=== PATIENT | male | born 1985 | race Hispanic/Latino ===

== ENCOUNTER 2021-07-28 05:20 | Emergency (ER) | payer BC, OTHER, SELFPAY ==
[2021-07-28] MEDS ORDERED: Pantoprazole 40 MG VIAL ONE (05:44)
[2021-07-28] MEDS ORDERED: Lidocaine Viscous Sol 2% 15 ml UD Cup ONE (05:44)
[2021-07-28] MEDS ORDERED: Mag-Al Plus 1200 MG/1200 MG/120 MG/30 ML UDCUP ONE (05:44)
[2021-07-28 06:00] LABS: #Basophils 0.1 thou/uL (0.0-0.2); #Lymphocytes 1.4 thou/uL (1.20-3.40); #Monocytes 0.8 thou/uL (0.11-0.59); #Neutrophils 5.2 thou/uL (1.40-6.50); %Basophils 0.8 % (0.0-1.0); %Eosinophils 0.6 % (0.0-10.0); %Monocytes 10.5 % (0.0-10.0); %Neutrophils 69.1 % (42.0-75.0); Hemoglobin 13.8 g/dL (14.0-18.0); Mean Corpuscular HGB CONC 31.5 g/dL (32.0-36.0); Mean Corpuscular Hemoglobin 27.1 pg (27.0-31.0); Mean Corpuscular Volume 85.9 fL (78.0-98.0); Mean Platelet Volume 7.2 fL (7.4-10.4); Platelet Count 196 thou/uL (130-400); RBC Distribution Width 13.3 % (11.5-14.5); Red Blood Cell (RBC) Count 5.09 mill/uL (4.70-6.10); White Blood Cell (WBC) Count 7.6 thou/uL (4.8-10.8)
[2021-07-28] MEDS ORDERED: Ondansetron PF 4 MG/2 ML Vial ONE (06:23)
[2021-07-28] MEDS ORDERED: Morphine 4 MG/ML VIAL ONE (06:23)
[2021-07-28 06:26] LABS: ALT (SGPT) 33 U/L (8-55); AST (SGOT) 22 U/L (5-34); Albumin 4.1 g/dL (3.5-5.0); Alkaline Phosphatase 42 U/L (40-110); Anion Gap 12 mmol/L (10-20); BUN (Urea Nitrogen) 14 mg/dL (8.9-20.6); Bilirubin, Total 0.3 mg/dL (0.2-1.2); Calc. Creatinine Clearance 0 mL/min (70-130); Calcium 8.7 mg/dL (7.8-10.44); Carbon Dioxide 24 mmol/L (22-29); Chloride 104 mmol/L (98-107); Globulin 3.1 g/dL (2.4-3.5); Glucose 122 mg/dL (70-105); Lipase 32 U/L (8-78); Potassium 3.8 mmol/L (3.5-5.1); Protein, Total 7.2 g/dL (6.0-8.3); Sodium 136 mmol/L (136-145)
[2021-07-28] MEDS ORDERED: Sucralfate 1 GM TAB ONE (06:44)
[2021-07-28 07:47] LABS: Bilirubin Negative (Negative); Blood, Urine Negative (Negative); Clarity Clear (Clear); Glucose, Urine (Dipstick) Negative (Negative); Ketone, Urine Negative (Negative); Leukocyte Negative (Negative); Nitrite Negative (Negative); Protein, Urine (Dipstick) Negative (Neg-Trace); Specific Gravity, Urine 1.015 (1.005-1.030); Urobilinogen 0.2 mg/dL (Less than 2); pH, Urine 8.5 (5.0-9.0)
[2021-07-28 09:28] LABS: Troponin I Less than 0.010 ng/mL (< 0.028)
== END 2021-07-28 10:15 | disposition home or self-care (01) ==
LOC: NAV ERS 05:20
DX: R07.89 Other chest pain (principal); R91.1 Solitary pulmonary nodule; Z87.891 Personal history of nicotine dependence
CPT/HCPCS: 71046; 71275; 74174; 80053; 81003; 83690; 84484; 85025; 93005; 96374; 96375; C9113; J2270; J2405

== ENCOUNTER 2021-08-03 17:11 | Emergency (ER) | payer BC ==
[2021-08-03] MEDS ORDERED: Ibuprofen 200 MG TAB ONE (17:24)
== END 2021-08-03 17:52 | disposition home or self-care (01) ==
LOC: NAV ERS 17:11
DX: B34.9 Viral infection, unspecified (principal); Z87.891 Personal history of nicotine dependence
CPT/HCPCS: 71046